=== PATIENT | male | born 1945 | race Caucasian/White ===

== ENCOUNTER 2018-03-22 20:25 | Inpatient (IN) | payer MEDICARE ==
--- NOTE | 2018-03-22 21:03 | ED ---
GI/ HPI - HPI Summary HPI Summary: This patient is a 72 year old male brought in by ambulance to [facility] with a chief complaint of melena since 2 weeks ago. Patient states he woke up this morning dizzy and weak. He went downstairs to the kitchen and attempted to splash water on his face to freshen up as he felt hot and sweaty. Instead, he spent several minutes trying not to pass out. Afterwards, he went to the bathroom and his stool was black and tarry. Patient was sent from [place] for further evaluation. The pain is rated 0/10 in severity. Symptoms aggravated by nothing. Symptoms alleviated by nothing. Patient additionally reports weakness, SOB, diaphoresis. Patient denies pain. Patient states he had a bleeding ulcer 10 years ago and the symptoms today are similar. - History of Current Complaint Stated Complaint: GI COMPLAINT Hx Obtained From: Patient Onset/Duration: Started Weeks Ago, Still Present Timing: Constant Pain Intensity: 0 Associated Signs and Symptoms: Positive: Negative - pain, Black Tarry Stool, Other: - weakness, SOB, diaphoresis Aggravating Factor(s): Nothing Alleviating Factor(s): Nothing - Allergy/Home Medications Allergies/Adverse Reactions: Allergies Allergy/AdvReac Type Severity Reaction Status Date / Time ibuprofen Allergy Unknown Verified 03/22/18 20:37 Reaction Details Home Medications: Home Medications Aspirin [Aspirin Childrens 81 MG] 81 mg PO DAILY 03/22/18 [History Confirmed ] Atorvastatin Calcium [Lipitor] 80 mg PO DAILY 03/22/18 [History Confirmed ] Dicyclomine HCl 10 mg PO TID 03/22/18 [History Confirmed 03/22/18] Famotidine [Pepcid] 20 mg PO BID 03/22/18 [History Confirmed 03/22/18] Levocetirizine Dihydrochloride [Xyzal Allergy 24Hr] 5 mg PO DAILY 03/22/18 [ History Confirmed 03/22/18] PMH/Surg Hx/FS Hx/Imm Hx Previously Healthy: No History: Reports: Other Problems/Disorders - bleeding ulcer Opthamlomology History: Denies: Hx Legally Blind EENT History: Denies: Hx Deafness Infectious Disease History: No Infectious Disease History: Denies: Traveled Outside the [place] in Last 30 Days - Family History Known Family History: Negative: Hypertension - Social History Occupation: Retired Alcohol Use: None Hx Substance Use: No Substance Use Type: Reports: None Review of Systems Positive: Skin Diaphoresis. Negative: Fever Positive: Shortness Of Breath Positive: Other - melena Positive: Weakness All Other Systems Reviewed And Are Negative: Yes Physical Exam - Summary Physical Exam Summary: VITAL SIGNS: Reviewed. GENERAL: Patient is a well-developed and nourished male who is lying comfortable in the stretcher. Patient is not in any acute respiratory distress. HEAD AND FACE: No signs of trauma. No ecchymosis, hematomas or skull depressions. No sinus tenderness. EYES: PERRLA, EOMI x 2, No injected conjunctiva, no nystagmus. EARS: Hearing grossly intact. Ear canals and tympanic membranes are within normal limits. MOUTH: Oropharynx within normal limits. NECK: Supple, trachea is midline, no adenopathy, no JVD, no carotid bruit, no c- spine tenderness, neck with full ROM. CHEST: Symmetric, no tenderness at palpation LUNGS: Clear to auscultation bilaterally. No wheezing or crackles. CVS: Regular rate and rhythm, S1 and S2 present, no murmurs or gallops appreciated. ABDOMEN: Soft, non-tender. No signs of distention. No rebound no guarding, and no masses palpated. Bowel sounds are normal. EXTREMITIES: FROM in all major joints, no edema, no cyanosis or clubbing. RECTAL (completed by attending at [place]): melena, tested occult blood positive NEURO: Alert and oriented x 3. No acute neurological deficits. Speech is normal and follows commands. SKIN: Dry and warm Triage Information Reviewed: Yes Vital Signs On Initial Exam: Initial Vitals Temp Pulse Resp BP Pulse Ox 97.6 F 63 20 120/65 97 03/22/18 20:31 18 20:31 18 20:31 18 20:31 03/22/18 20:31 Vital Signs Reviewed: Yes Diagnostics - Vital Signs Vital Signs Temp Pulse Resp BP Pulse Ox 03/22/18 20:31 97.6 F 63 20 120/65 97 - Laboratory Result Diagrams: 03/22/18 21:16 03/22/18 21:16 Lab Statement: Any lab studies that have been ordered have been reviewed, and results considered in the medical decision making process. - EKG 2156 Cardiac Rate: Bradycardia EKG Rhythm: Sinus Bradycardia - 59 BPM Summary of EKG Findings: An EKG, taken 2155, reveals Sinus Bradycardia (59 BPM) , Non-specific T-wave changes, low voltage. GIGU Course/Dx - Course Course Of Treatment: This patient is a 72 year old male brought in by ambulance to [facility] with a chief complaint of melena since 2 weeks ago. Patient states he woke up this morning dizzy and weak. An EKG, taken 2155, reveals NSR (59 BPM), Non-specific T-wave changes, low voltage. Bloodwork Obtained. In the ED course the patient was given Pantoprazole, NS 0.9% bolus IV. The pt is hemodynamically stable, alert and oriented x3. We paged Dr. Wynn (Hospitalist) at 2149 to discuss patient care and possible admission. We discussed patient care with Dr. Wynn (Hospitalist) at 2304 and they agreed to admit the patients. Patient will be admitted to the floor with a dx of upper GI bleed. The patient is agreeable with this plan. - Diagnoses Provider Diagnoses: Upper GI bleed - Physician Notifications Discussed Care Of Patient With: Renae Wynn - Hospitalist Time Discussed With Above Provider: 23:05 - We discussed patient care with Dr. Wynn (Hospitalist) at 230 and they agreed to admit the patient. Discharge - Sign-Out/Discharge Documenting (check all that apply): Patient Departure - Discharge Plan Condition: Stable Disposition: ADMITTED TO [facility] Referrals: No Primary Care Phys,NOPCP [Primary Care Provider] - - Attestation Statements Document Initiated by Janetibe: Yes Documenting Scribe: Eli Gloria Provider For Whom Ced is Documenting (Include Credential): Hortencia Hess MD [facility] Attestation: Eli Mckee scribed for Hortencia Hess MD on 03/22/18 at 2324. Status of Scribe Document: Ready
[2018-03-22] MEDS ORDERED: Pantoprazole* 80 mg IN NS 80 MG/250 ML BAG IVPB ONE (21:08)
[2018-03-22] MEDS ORDERED: Pantoprazole IV* 40 MG IV ONE (21:08)
[2018-03-22] MEDS ORDERED: NS 0.9% 1000 ML* 1,000 ML IV SCH ×2 (21:15→23:45)
[2018-03-22 21:26] LABS: ABS Basophils 0.1 10^3/ul (0-0.2); ABS Eosinophils 0.1 10^3/ul (0-0.6); ABS Lymphocytes 2.8 10^3/ul (1.0-4.8); ABS Neutrophils 7.8 10^3/ul (1.5-7.7); ABS Nucleated RBC 0 10^3/ul; Eosinophil % 1.1 %; Hematocrit 31 % (42-52); Hemoglobin 10.5 g/dl (14.0-18.0); Lymphocyte % 23.6 %; Mean Corpuscular HGB Conc 34 g/dl (31-36); Mean Corpuscular Hemoglobin 34 pg (27-31); Mean Corpuscular Volume 98 fL (80-94); Mean Platelet Volume 9.5 fL (7.4-10.4); Nucleated Red Blood Cells % 0.1; Platelet Count 165 10^3/ul (150-450); Red Blood Count 3.13 10^6/ul (4.00-5.40); Red Cell Distribution Width 13 % (10.5-15); White Blood Count 11.8 10^3/ul (3.5-10.8)
[2018-03-22 21:42] LABS: Activated Partial Thrombo Time 31.2 seconds (26.0-36.3); INR 1.21 (0.77-1.02)
[2018-03-22 21:45] LABS: Albumin/Globulin Ratio 2.1 (1-3); BUN/Creatinine Ratio 44.6 (8-20); Calcium 7.7 mg/dL (8.6-10.3); EGFR Non-African American 103.4 (>60); Globulin 1.4 g/dL (2-4); Total Bilirubin 0.7 mg/dL (0.2-1.0); Total Protein 4.4 g/dL (6.4-8.9)
[2018-03-22] MEDS ORDERED: Albuterol 2.5 MG/3 ML NEB.SOL* (0.083%) INH PRN (23:45)
[2018-03-22] MEDS ORDERED: Ondansetron INJ* 2 MG/ML VIAL IV PRN (23:45)
[2018-03-23] MEDS ORDERED: Albuterol 2.5 MG/3 ML NEB.SOL* (0.083%) INH PRN (00:17)
[2018-03-23 00:39] LABS: Hematocrit 29 % (42-52)
--- NOTE | 2018-03-23 00:39 | ADMNOTE ---
Subjective Date of Service: 03/22/18 Interval History: code status full this is admission h/p hpi this is a 72 yr old wm with hx of copd hx of ugib due to bleeding ulcer, cva/tia [id number] with blurry vision was transferred from [facility] to here due to lack of gi service. pt had one week duration of black stool. he had multiple episodes of black stool mixed with fresh blood yesterday 8 am and has been feeling unsteady/dizzy and subsequently fell ---> he has a hard time to get him self up then went to the bathroom again for antoher episode of bm ---> decided to go to [place] [facility]. initial hg was 10.5 here. he was started with protonix drip. 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5 Mg/Ipratropium 0.5 Mg)) 1 neb INH [id number] AWAKE LEONELA Sodium Chloride (Ns 0.9% 1000 Ml*) 1,000 mls @ 150 mls/hr IV PER RATE LEONELA Pantoprazole Sodium (Protonix Iv Bag*) 80 mg in 250 mls @ 25 mls/hr IVPB ED ONCE ONE Stop: 12/25/18 07:07 Last Admin: 03/22/18 22:46 Dose: 25 mls/hr Sodium Chloride (Ns 0.9% 1000 Ml*) 1,000 mls @ 125 mls/hr IV PER RATE LEONELA Pantoprazole Sodium (Protonix Iv Bag*) 80 mg in 250 mls @ 25 mls/hr IVPB Q10H LEONELA Ondansetron HCl (Zofran Inj*) 4 mg IV Q6H PRN PRN Reason: NAUSEA/VOMITING Vital Signs - 8 hr 03/22/18 03/22/18 03/22/18 20:31 21:06 21:09 Temperature 97.6 F Pulse Rate 63 63 58 Respiratory 20 17 17 Rate Blood Pressure 120/65 98/64 (mmHg) O2 Sat by Pulse 97 97 95 Oximetry 03/22/18 03/22/18 03/22/18 21:38 22:00 22:39 Temperature Pulse Rate 58 59 61 Respiratory 15 19 16 Rate Blood Pressure 100/62 96/56 (mmHg) O2 Sat by Pulse 95 95 94 Oximetry 03/22/18 03/22/18 03/22/18 23:00 23:09 23:39 Temperature Pulse Rate 61 59 57 Respiratory 17 15 15 Rate Blood Pressure 105/66 109/58 (mmHg) O2 Sat by Pulse 94 94 92 Oximetry 03/23/18 00:24 Temperature 0 F Pulse Rate 0 Respiratory 0 Rate Blood Pressure 0/0 (mmHg) O2 Sat by Pulse 0 Oximetry Oxygen Devices in Use Now: Nasal Cannula Appearance: nad Eyes: No Scleral Icterus, PERRLA Ears/Nose/Mouth/Throat: NL Teeth, Lips, Gums, Clear Oropharnyx, - - oral mucosa dry Neck: NL Appearance and Movements; NL JVP, Trachea Midline, No Thyroid Enlargement, Masses Respiratory: Symmetrical Chest Expansion and Respiratory Effort, - - scattered wheezing Cardiovascular: NL Sounds; No Murmurs; No JVD, RRR Abdominal: NL Sounds; No Tenderness; No Distention Extremities: No Edema, - - able to raise ue and le b/l against gravity Skin: No Rash or Ulcers Neurological: Alert and Oriented x 3, NL Sensation, NL Muscle Strength and Tone Result Diagrams: 03/24/18 12:22 03/24/18 04:47 EKG Data: sb no acute st t change when compared to 2010 ekg Assess/Plan/Problems-Billing Assessment: this is a 72 yr old wm with copd bleeding gastric ulcer but had to take asa 81 mg due to cva/tia attack presented to er with melena for one week but became weak/unsteady gait/fall pt was transferred to here from [place] due to lack of gi service - Patient Problems (1) UGIB (upper gastrointestinal bleed) Current Visit: Yes Status: Acute Code(s): K92.2 - GASTROINTESTINAL HEMORRHAGE, UNSPECIFIED SNOMED Code(s): 29457110 Comment: - Hx of ulcer and ASA use, may have had additional medication added by his primary at some point, was on Pepcid but not PPI - H&H dropped overnight to 7.4 and 22, transfuse 2 units PRBCs stat, hold on stress test, will obtain ECHO - GI consult appreciated, needs ECHO before we can sedate for EGD - Requested RN to pre-med with tylenol and benadryl for transfusion - Continue protonix drip (2) COPD (chronic obstructive pulmonary disease) Current Visit: Yes Status: Acute Code(s): J44.9 - CHRONIC OBSTRUCTIVE PULMONARY DISEASE, UNSPECIFIED SNOMED Code(s): 08755266 Comment: - PRN duoneb, not in exacerbation (3) Demand ischemia Current Visit: Yes Status: Acute Code(s): I24.8 - OTHER FORMS OF ACUTE ISCHEMIC HEART DISEASE SNOMED Code(s): 668326880 Comment: - Elevated trop on admission now trending down, unclear if demand versus ACS - Patient has SOB and reports chest pain before admission, concern that with CO exposure patient may have (4) Anemia Current Visit: Yes Status: Acute Code(s): D64.9 - ANEMIA, UNSPECIFIED SNOMED Code(s): 349646081 Comment: - In setting of GI bleeding and CO exposure - Check carbon monoxide which is <4.0, unclear if patient having continued exposure to CO in the home. - Continue O2 at @LNC - Pending 2 units PRBCs (5) Dizzy Current Visit: Yes Status: Acute Code(s): R42 - DIZZINESS AND GIDDINESS SNOMED Code(s): 842851434 Comment: ck his orthostatic in am gentle ivf while npo (6) Generalized weakness Current Visit: Yes Status: Acute Code(s): R53.1 - WEAKNESS SNOMED Code(s) : 60966966 Comment: - Likely in response to dropping H&H, however there is mild increase in troponin - No chest pain, but does get SOB - Pending ECHO and transfusion this AM
[2018-03-23] MEDS: Albuterol/Ipratropium NEB.SOL* Albuterol 2.5 MG/Ipratropium 0.5 MG 3 ML INH SCH ×4 (01:24→10:51)
[2018-03-23 03:30] LABS: Hematocrit 29 % (42-52); Hemoglobin 10.1 g/dl (14.0-18.0)
[2018-03-23] MEDS: Pantoprazole* 80 mg IN NS 80 MG/250 ML BAG IVPB SCH ×3 (04:07→23:20)
[2018-03-23] MEDS: NS 0.9% 1000 ML* 1,000 ML IV SCH ×2 (04:30→09:34)
[2018-03-23 06:17] LABS: Hematocrit 28 % (42-52); Hemoglobin 9.6 g/dl (14.0-18.0)
[2018-03-23 06:26] LABS: INR 1.22 (0.77-1.02)
[2018-03-23 06:38] LABS: ALT 17 U/L (7-52); AST 13 U/L (13-39); Albumin 2.8 g/dL (3.2-5.2); Alkaline Phosphatase 34 U/L (34-104); Anion Gap 4 mmol/L (2-11); BUN/Creatinine Ratio 39.2 (8-20); Blood Urea Nitrogen 31 mg/dL (6-24); CO2 Carbon Dioxide 24 mmol/L (22-32); Calcium 7.8 mg/dL (8.6-10.3); Chloride 110 mmol/L (101-111); Cholesterol 84 mg/dL; EGFR Non-African American 95.9 (>60); Globulin 1.4 g/dL (2-4); Glucose 90 mg/dL (70-100); LDL Cholesterol 27 mg/dL; Potassium 3.9 mmol/L (3.5-5.0); Sodium 138 mmol/L (135-145); Total Protein 4.2 g/dL (6.4-8.9); Triglycerides 140 mg/dL
[2018-03-23 06:50] LABS: Iron 118 ug/dL (50-212); Total Iron Binding Capacity 211 mcg/dL (250-450); Transferrin 151 mg/dL (203-362)
[2018-03-23 07:05] LABS: TSH (Thyroid Stimulating Horm) 2.61 mcIU/mL (0.34-5.60)
[2018-03-23 10:34] LABS: Hematocrit 28 % (42-52); Hemoglobin 9.6 g/dl (14.0-18.0)
--- NOTE | 2018-03-23 11:25 | PN ---
Subjective Date of Service: 03/23/18 Interval History: Patient seen and examined. States his only complaint is fatigue and has mild dyspnea with exertion/ambulation. Denies any further bloody or dark stools. Denies abdominal pain, no N/V, deneis recent use of NSAIDS or steroids but admits his doctor put him on a medication for his arthritis to take TID, but does not know what it is. Objective Active Medications: Albuterol (Ventolin 2.5 Mg/3 Ml Neb.Barbara*) 2.5 mg INH Q2H PRN PRN Reason: sob/wheezing Sodium Chloride (Ns 0.9% 1000 Ml*) 1,000 mls @ 150 mls/hr IV PER RATE LEONELA Pantoprazole Sodium (Protonix Iv Bag*) 80 mg in 250 mls @ 25 mls/hr IVPB Q10H LEONELA Last Admin: 03/23/18 09:34 Dose: 25 mls/hr Sodium Chloride (Ns 0.9% 1000 Ml*) 1,000 mls @ 100 mls/hr IV PER RATE [facility] Last Admin: 03/23/18 09:34 Dose: 100 mls/hr Ondansetron HCl (Zofran Inj*) 4 mg IV Q6H PRN PRN Reason: NAUSEA/VOMITING Vital Signs - 8 hr 03/23/18 03/23/18 03/23/18 07:25 09:43 10:54 Temperature 98.0 F Pulse Rate 52 52 Respiratory 18 18 16 Rate Blood Pressure 108/53 (mmHg) O2 Sat by Pulse 94 93 Oximetry Oxygen Devices in Use Now: None Appearance: Akert, NAD, pale Eyes: No Scleral Icterus, PERRLA Ears/Nose/Mouth/Throat: NL Teeth, Lips, Gums, Mucous Membranes Moist Neck: NL Appearance and Movements; NL JVP, Trachea Midline Respiratory: Symmetrical Chest Expansion and Respiratory Effort, Clear to Auscultation Cardiovascular: RRR Abdominal: NL Sounds; No Tenderness; No Distention, No Hepatosplenomegaly Extremities: No Edema, No Clubbing, Cyanosis Skin: No Rash or Ulcers Neurological: Alert and Oriented x 3, - - poor historian but appropriate Nutrition: - - NPO Result Diagrams: 03/23/18 10:17 03/23/18 05:57 EKG Data: sb no acute st t change when compared to 2010 ekg Assess/Plan/Problems-Billing Assessment: This is a 72 yr old wm with copd and history of bleeding gastric ulcer , but continued to take ASA 81 mg due to hx of cva/tia. Presented to ER with at [place] with melena for one week but became weak/unsteady gait/fall, subsequently transferred from [place] due to lack of GI services. - Patient Problems (1) UGIB (upper gastrointestinal bleed) Code(s): K92.2 - GASTROINTESTINAL HEMORRHAGE, UNSPECIFIED SNOMED Code(s): 34157792 Comment: - Hx of ulcer and ASA use, may have had additional medication added by his primary at some point, was on Pepcid but not PPI - Currently on protonix drip - HgB down to 9.6 but is symptomatic, recheck at 6pm - Pending GI eval, will keep NPO after midnight in case of EGD in AM - See if patient can tolerate clears today (2) Generalized weakness Code(s): R53.1 - WEAKNESS SNOMED Code(s): 49077651 Comment: - Likely in response to dropping H&H, however there is mild increase in troponin - No chest pain, but does get SOB - Will order routine ECHO in AM and continue to follow labs - May need to transfuse if H&H continues to drop and he remains symptomatic (3) Anemia Code(s): D64.9 - ANEMIA, UNSPECIFIED SNOMED Code(s): 358400349 Comment: - In setting o GI bleeding - Unclear of his baseline HgB, may actually be higher due to his smoking hx which would account for being symptomatic now - Follow Iron studies and H&H, currently no further bloody stools today - Transfuse if needed, patient agreeable (4) COPD (chronic obstructive pulmonary disease) Code(s): J44.9 - CHRONIC OBSTRUCTIVE PULMONARY DISEASE, UNSPECIFIED SNOMED Code(s): 95787544 Comment: - PRN duoneb, not in exacerbation (5) Demand ischemia Code(s): I24.8 - OTHER FORMS OF ACUTE ISCHEMIC HEART DISEASE SNOMED Code(s): 335436737 Comment: - Elevated trop with no chest pain - Likely demand in setting of bleeding/anemia - Follow 3rd trop, trending down Status and Disposition: Inpatient, dispo TBD.
[2018-03-23 11:48] LABS: Urine Appearance Clear; Urine Bilirubin Negative (Negative); Urine Blood Negative (Negative); Urine Color Yellow; Urine Glucose Negative (Negative); Urine Ketones Negative (Negative); Urine Nitrite Negative (Negative); Urine Protein Negative (Negative); Urine Specific Gravity 1.018 (1.010-1.030); Urine Urobilinogen Negative (Negative)
--- NOTE | 2018-03-23 17:32 | CONS ---
CONSULTATION REPORT: DATE OF CONSULT: 03/23/18 REQUESTING PHYSICIAN: Dr. Renae Wynn. REASON FOR CONSULT: Acute blood loss anemia, melena. HISTORY OF PRESENT ILLNESS: This is a pleasant 72-year-old male with a past medical history of TIA, COPD, hypertension and distant peptic ulcer disease, who initially presented to [facility] 4 to 5 days ago after evaluation for potential carbon monoxide poisoning. He states that his wood stove became clogged and he was becoming discoherent and confused in the house. He called for help and when the fire department came, he states that the carbon monoxide detectors began going off and everyone was evacuated from the home. During the hospitalization at [place], he reported that he was having dark stool for the last 2 weeks, black and tarry in nature. He denies any abdominal pain. He states that he does take a daily baby aspirin. No further NSAID usage. He states that he did have a peptic ulcer about 10 years ago that did have to have endoscopic therapy to it. He does not recall this was stomach or duodenal in nature. He states he has had longstanding acid reflux. He takes Pepcid up to twice a day at times for this. He denies any heavy alcohol use. He states that he did have episodes where he felt unsteady and with near blacking out while in [facility] and also prior to this. He states that he has also had some intermittent chest discomfort. He is unsure if it is exertional in nature and states that he has had worsening shortness of breath over the last few weeks as well. He denies any weight loss or weight gain. Denies any dysphagia or odynophagia. Denies any frequent diarrhea or constipation. Denies any nausea or emesis. The remainder of the 14-point review of systems is grossly negative. PAST MEDICAL HISTORY: COPD, hypertension, CVA, distant history of peptic ulcer disease, and osteoarthritis. PAST SURGICAL HISTORY: Left knee, tonsillectomy, appendectomy, ventral hernia repair, inguinal hernia repair, possible EGD for peptic ulcer disease. HOME MEDICATIONS: Include: 1. Atorvastatin. 2. Dicyclomine. 3. Famotidine. 4. Xyzal. ALLERGIES: Include IBUPROFEN. FAMILY HISTORY: No family history of colorectal cancer, inflammatory bowel disease, or GI cancer. SOCIAL HISTORY: Prior tobacco use. Denies EtOH. REVIEW OF SYSTEMS: The remainder of the 14-point review of systems was grossly negative. PHYSICAL EXAM: Vital Signs: Blood pressure 133/59, pulse is 58, respiratory rate is 22, he is 96% on room air, temperature was 98.0. General: Alert and oriented x3, in no acute distress. HEENT: Atraumatic, normocephalic. Pupils are equal, round, reactive to light. Conjunctivae are pink. Sclerae are anicteric. Cardiovascular: Regular rate and rhythm. S1, S2. Respiratory: Diminished at the base with occasional wheeze. Abdomen: Soft, nontender, and nondistended. Bowel sounds positive. Extremities: No clubbing, no cyanosis, no edema. Psych: Appropriate mood and affect. Skin with scattered ecchymoses. LABORATORY DATA: WBC count is 11.8; hemoglobin on admission 10.5, hemoglobin today 9.6; platelet count 165. INR 1.22. Creatinine 0.79, calcium 7.8. Iron 118, TIBC 211, percent saturation 56. Total bilirubin 0.70, AST is 13, ALT is 17. Troponins 0.11, 0.07, 0.04. Albumin 2.8. TSH 2.61. ASSESSMENT AND PLAN: This is a 72-year-old male with acute blood loss anemia with reported melena. 1. Acute blood loss anemia. Agree with IV proton pump inhibitor. H and H q.6 hours. Keep head of the bed elevated at all times. Keep 2 units of PRBCs on hold. Transfuse p.r.n. for hemoglobin below 7 per primary service. Avoid NSAIDs. INR is slightly elevated with slightly low platelet count. If ongoing evidence or concern of blood loss, we would add on octreotide, but no clear evidence of liver disease. He certainly does need an upper endoscopy to evaluate for peptic ulcer disease. Given his elevated troponin and recent carbon monoxide exposure along with tobacco abuse and history and new-onset dyspnea and chest pains, we would recommend clearance from primary team or cardiology team prior to endoscopic evaluation. In the interim, continue to monitor hemoglobin and transfuse as needed. 2. Elevated troponin. Per primary team. 3. Dyspnea. Per primary team. 4. Elevated INR. Unclear etiology. Will need outpatient followup. [id number]/[facility] #: [id number] [facility]ITALTyson
[2018-03-23 18:06] LABS: Hematocrit 24 % (42-52); Hemoglobin 8.3 g/dl (14.0-18.0)
[2018-03-24 04:56] LABS: Hematocrit 22 % (42-52); Hemoglobin 7.4 g/dl (14.0-18.0); Mean Corpuscular HGB Conc 33 g/dl (31-36); Mean Corpuscular Hemoglobin 33 pg (27-31); Mean Corpuscular Volume 99 fL (80-94); Mean Platelet Volume 9.6 fL (7.4-10.4); Platelet Count 156 10^3/ul (150-450); Red Blood Count 2.25 10^6/ul (4.00-5.40); Red Cell Distribution Width 13 % (10.5-15); White Blood Count 14.3 10^3/ul (3.5-10.8)
[2018-03-24 05:17] LABS: Calcium 7.8 mg/dL (8.6-10.3); EGFR Non-African American 94.5 (>60); Magnesium 1.8 mg/dL (1.9-2.7); Potassium 4.2 mmol/L (3.5-5.0)
[2018-03-24] MEDS ORDERED: Magnesium Sulfate 2 GM IV* 2 GM/50 ML BAG IVPB ONE (07:45)
[2018-03-24] MEDS ORDERED: diPHENhydraMINE PO* 25 MG PO ONE (08:48)
[2018-03-24] MEDS ORDERED: Acetaminophen TAB* 325 MG PO ONE (08:49)
[2018-03-24] MEDS: Pantoprazole* 80 mg IN NS 80 MG/250 ML BAG IVPB SCH ×3 (10:12→21:26)
[2018-03-24 12:35] LABS: Hematocrit 18 % (42-52); Hemoglobin 6.3 g/dl (14.0-18.0)
[2018-03-24] MEDS: NS 0.9% 1000 ML* 1,000 ML IV SCH ×2 (12:51→22:33)
--- NOTE | 2018-03-24 14:24 | PN ---
Subjective Date of Service: 03/24/18 Interval History: Patient seen and examined this morning. Patient lethargic and pale. Per notes, patient had large bloody BM overnight x2. Patient complains of extreme fatigue and SOB with minimal exertion. Denies chest pain, no n/v/d, no abdominal pain. Objective Active Medications: Albuterol (Ventolin 2.5 Mg/3 Ml Neb.Barbara*) 2.5 mg INH Q2H PRN PRN Reason: sob/wheezing Sodium Chloride (Ns 0.9% 1000 Ml*) 1,000 mls @ 150 mls/hr IV PER RATE LEONELA Pantoprazole Sodium (Protonix Iv Bag*) 80 mg in 250 mls @ 25 mls/hr IVPB Q10H LEONELA Last Admin: 03/24/18 10:12 Dose: 25 mls/hr Sodium Chloride (Ns 0.9% 1000 Ml*) 1,000 mls @ 100 mls/hr IV PER RATE LEONELA Last Admin: 03/24/18 12:51 Dose: 100 mls/hr Ondansetron HCl (Zofran Inj*) 4 mg IV Q6H PRN PRN Reason: NAUSEA/VOMITING Vital Signs - 8 hr 03/24/18 03/24/18 03/24/18 07:58 08:00 09:42 Temperature 96.9 F Pulse Rate 75 Respiratory 14 16 16 Rate Blood Pressure 125/53 (mmHg) O2 Sat by Pulse 100 Oximetry 03/24/18 03/24/18 03/24/18 12:26 13:07 13:11 Temperature 98.5 F Pulse Rate 66 Respiratory 16 24 17 Rate Blood Pressure 137/70 (mmHg) O2 Sat by Pulse 100 Oximetry 03/24/18 03/24/18 03/24/18 13:30 13:46 14:00 Temperature Pulse Rate 67 64 Respiratory 19 22 17 Rate Blood Pressure 124/70 109/67 (mmHg) O2 Sat by Pulse 99 100 Oximetry Oxygen Devices in Use Now: Nasal Cannula Appearance: ill-appearing, NAD Eyes: No Scleral Icterus, PERRLA Ears/Nose/Mouth/Throat: NL Teeth, Lips, Gums, - - dry oral mucosa Neck: NL Appearance and Movements; NL JVP, Trachea Midline Respiratory: Symmetrical Chest Expansion and Respiratory Effort, Clear to Auscultation Cardiovascular: NL Sounds; No Murmurs; No JVD, RRR, No Edema Abdominal: NL Sounds; No Tenderness; No Distention, No Hepatosplenomegaly Extremities: No Edema, No Clubbing, Cyanosis Skin: No Rash or Ulcers - fatigued, oriented x3 Nutrition: - - NPO Result Diagrams: 03/24/18 12:22 03/24/18 04:47 EKG Data: sb no acute st t change when compared to 2010 ekg Assess/Plan/Problems-Billing Assessment: This is a 72 yr old wm with copd and history of bleeding gastric ulcer , but continued to take ASA 81 mg due to hx of cva/tia. Presented to ER with at [place] with melena for one week but became weak/unsteady gait/fall, subsequently transferred from [place] due to lack of GI services. - Patient Problems (1) UGIB (upper gastrointestinal bleed) Code(s): K92.2 - GASTROINTESTINAL HEMORRHAGE, UNSPECIFIED SNOMED Code(s): 39643638 Comment: - Hx of ulcer and ASA use, may have had additional medication added by his primary at some point, was on Pepcid but not PPI - H&H dropped overnight to 7.4 and 22, transfuse 2 units PRBCs stat, hold on stress test, will obtain ECHO - GI consult appreciated, needs ECHO before we can sedate for EGD - Requested RN to pre-med with tylenol and benadryl for transfusion - Continue protonix drip (2) Generalized weakness Code(s): R53.1 - WEAKNESS SNOMED Code(s): 65770615 Comment: - Likely in response to dropping H&H, however there is mild increase in troponin - No chest pain, but does get SOB - Pending ECHO and transfusion this AM (3) Anemia Code(s): D64.9 - ANEMIA, UNSPECIFIED SNOMED Code(s): 076583790 Comment: - In setting of GI bleeding and CO exposure - Check carbon monoxide which is <4.0, unclear if patient having continued exposure to CO in the home. - Continue O2 at @LNC - Pending 2 units PRBCs (4) COPD (chronic obstructive pulmonary disease) Code(s): J44.9 - CHRONIC OBSTRUCTIVE PULMONARY DISEASE, UNSPECIFIED SNOMED Code(s): 04242472 Comment: - PRN duoneb, not in exacerbation (5) Demand ischemia Code(s): I24.8 - OTHER FORMS OF ACUTE ISCHEMIC HEART DISEASE SNOMED Code(s): 778436841 Comment: - Elevated trop on admission now trending down, unclear if demand versus ACS - Patient has SOB and reports chest pain before admission, concern that with CO exposure patient may have (6) DVT prophylaxis Code(s): XWJ8410 - SNOMED Code(s): 107278526 Comment: - Active bleeding, SCDs only (7) Full code status Code(s): Z78.9 - OTHER SPECIFIED HEALTH STATUS SNOMED Code(s): 724233217 Status and Disposition: Inpatient, dispo TBD.
[2018-03-24] MEDS ORDERED: Perflutren Lipid Microsphere* 3 ML VIAL ONE (14:45)
--- NOTE | 2018-03-24 16:30 | ECHO ---
Patient: EDIE FOUNTAIN [facility] Rec#: [id number] : 1945 Date: 03/24/2018 Age: 72y Height: 163 cm / 64.2 in Weight: 90.2 kg / 198.8 lbs Sex: M BSA: 1.96 Room#: [facility] Admit Date#: 03/23/2018 Type: Inpatient Referring: Sharda Paula Reading: Yair Deleon MD Nightclub Manager: [facility]NEW [facility] Tran[facility] Echocardiogram Indication: Shortness of breath BP: 121/72 HR: 61 Rhythm: NSR Findings History: HTN, COPD, CVA, upper GI bleed, former pipe smoker, recent CO poisoning. Technical Comments: The study is technically limited due to poor acoustic windows. Completed at 1530. Left Ventricle: The left ventricular chamber size is normal. There is no left ventricular hypertrophy. There is normal left ventricular systolic function. The estimated ejection fraction is 60-65%. There is septal flattening of the interventricular septum consistent with right ventricular volume or pressure overload. Abnormal left ventricular diastolic function is observed. Abnormal left ventricular diastolic filling is observed, consistent with impaired relaxation. Left Atrium: The left atrium is moderately dilated. Right Ventricle: The right ventricle is mildly dilated. The right ventricular global systolic function is low normal. Right Atrium: The right atrium is moderately dilated. There is evidence of an atrial septal aneurysm. Aortic Valve: The aortic valve is trileaflet. The aortic valve leaflets are mildly thickened. There is a trace of aortic regurgitation. There is no evidence of aortic stenosis. Mitral Valve: The mitral valve leaflets are mildly thickened. There is a trace of mitral regurgitation. There is no evidence of mitral stenosis. Tricuspid Valve: The tricuspid valve leaflets are normal. There is mild tricuspid regurgitation. The right ventricular systolic pressure is estimated at 30 mmHg. There is evidence that pulmonary hypertension may be underestimated. There is no tricuspid stenosis. Pulmonic Valve: The pulmonic valve structure is not well visualized. There is a trace pulmonic regurgitation. There is no pulmonic stenosis. Pericardium: There is no significant pericardial effusion. A pericardial fat pad is visualized. Aorta: There is mild dilatation of the ascending aorta. The aortic arch is not well visualized. The aortic root is normal in size. Pulmonary Artery: The main pulmonary artery is not well visualized. Venous: The inferior vena cava appears normal in size. There is a greater than 50% respiratory change in the inferior vena cava dimension. Contrast: Definity was used to optimize study. 2.5 mL of diluted Definity were utilized. Intravenous contrast was used to enhance endocardial border definition. Conclusions There is normal left ventricular systolic function. The estimated ejection fraction is 60-65%. There is septal flattening of the interventricular septum consistent with right ventricular volume or pressure overload. Abnormal left ventricular diastolic filling is observed, consistent with impaired relaxation. The left atrium is moderately dilated. The right ventricle is mildly dilated. The right ventricular global systolic function is low normal. The right atrium is moderately dilated. The aortic valve leaflets are mildly thickened. There is mild tricuspid regurgitation. There is mild dilatation of the ascending aorta. There is evidence of an atrial septal aneurysm. Similar to the GIRISH of 2011 except that a PFO was demonstrated on the GIRISH bubble study and atherosclerotic plaque was seenin the aorta. The RV dilatation and septal flattening were not reported in 2011. Measurements Name Value Normal Range RVIDd (AP) 2D 3.7 cm (0.9 - 2.6) RVDdMajor (2D) 4.5 cm (2.2 - 4.4) RAd ISD 4CH 5.7 cm (3.4 - 4.9) RA (A4C)W 4 cm (2.9 - 4.6) IVSd (2D) 1 cm (0.6 - 1) LVPWd (2D) 0.9 cm (0.6 - 1) LVIDd (2D) 4.9 cm (3.6 - 5.4) LVIDs (2D) 3.6 cm - LV FS (2D) 27 % (25 - 45) Aortic Annulus 2.2 cm (1.4 - 2.6) Ao root diameter (2D) 3.4 cm (2.1 - 3.5) Ascending Ao 3.5 cm (2.1 - 3.4) LA dimension (AP) 2D 4.2 cm (2.3 - 3.8) LAd ISD 4CH 5.3 cm (2.9 - 5.3) LA ISD 4CH W 4.9 cm (2.5 - 4.5) Name Value Normal Range LA ESV BP (A/L) index 47 ml/m2 - Name Value Normal Range MV E-wave Vmax 0.6 m/sec - MV deceleration time 173 msec - MV A-wave Vmax 0.9 m/sec - MV E:A ratio 0.6 ratio - LV septal e' Vmax 0.08 m/sec - LV lateral e' Vmax 0.12 m/sec - LV E:e' septal ratio 7.55 ratio - Name Value Normal Range AV Vmax 1.5 m/sec - AV VTI 30 cm - AV peak gradient 9 mmHg - AV mean gradient 5 mmHg - LVOT Vmax 1.2 m/sec - LVOT VTI 24 cm - LVOT peak gradient 6 mmHg - LVOT mean gradient 3 mmHg - Name Value Normal Range TR Vmax 2.6 m/sec - TR peak gradient 27 mmHg - RAP 3 mmHg - RVSP 30 mmHg - IVC diameter 2.06 cm - Name Value Normal Range PV Vmax 0.9 m/sec - PV peak gradient 3 mmHg -
--- NOTE | 2018-03-24 21:10 | CONS ---
GASTROENTEROLOGY CONSULT FOLLOW-UP NOTE: Chart reviewed and spoke with primary team on several occasions. Met with patient this morning and afternoon. GI following for suspected GI bleed and anemia. Hospitalization also notable for carbon monoxide poisoning, now resolved, and elevated troponin with unclear cardiac status. The patient was noted to have a hematocrit that dropped today to 22. He had dark red bloody bowel movements early this morning between 5 and 6 a.m. The plan was to transfuse 2 units; however, this was delayed several hours. At the time of recheck prior to receiving the 2 units, his hematocrit had dropped further to 18. Patient was pale and lethargic at that time. 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 He has remained hemodynamically stable. Cardiology unable to perform risk stratification with stress today due to anemia. Echo to be performed this afternoon. Patient seen again while receiving first unit of blood. He appeared more alert and comfortable. At this point, the patient is clinically stable. His vital signs are normal, and there he has had no ongoing overt bleeding for at least 10 hours. I would favor volume resuscitation with packed red blood cells for goal hemoglobin of 8 given concern for underlying cardiac disease as evidenced by elevated troponin on admission. Cardiology will then likely be able to perform risk stratification with stress test tomorrow morning after which we hopefully will be able to proceed with upper endoscopy. We could certainly consider doing a more urgent upper endoscopy if the patient has ongoing bleeding or clinical change. However, I think it is appropriate to optimize him prior to proceeding with moderate sedation and the procedure if possible. I agree with transfusion of 2 units of blood and closely monitoring hemoglobin. Please contact GI if ongoing evidence of active bleeding; otherwise, we would like to tentatively plan for EGD tomorrow after cardiac evaluation. GI will continue to follow. Yael Reynoso MD Gastroenterology [id number]/[facility] #: [id number] [facility]LANDTyson
[2018-03-24 21:31] LABS: Hematocrit 23 % (42-52)
[2018-03-25 06:11] LABS: ABS Basophils 0 10^3/ul (0-0.2); ABS Eosinophils 0.2 10^3/ul (0-0.6); ABS Lymphocytes 1.5 10^3/ul (1.0-4.8); ABS Monocytes 0.7 10^3/ul (0-0.8); ABS Neutrophils 7.1 10^3/ul (1.5-7.7); ABS Nucleated RBC 0 10^3/ul; Eosinophil % 2.4 %; Hematocrit 22 % (42-52); Hemoglobin 7.6 g/dl (14.0-18.0); Lymphocyte % 16.1 %; Mean Corpuscular HGB Conc 35 g/dl (31-36); Mean Corpuscular Hemoglobin 34 pg (27-31); Mean Corpuscular Volume 95 fL (80-94); Nucleated Red Blood Cells % 0.2; Platelet Count 126 10^3/ul (150-450); Red Blood Count 2.28 10^6/ul (4.00-5.40); Red Cell Distribution Width 15 % (10.5-15); White Blood Count 9.6 10^3/ul (3.5-10.8)
[2018-03-25 06:26] LABS: Albumin 2.6 g/dL (3.2-5.2); Albumin/Globulin Ratio 2.2 (1-3); BUN/Creatinine Ratio 37.5 (8-20); Calcium 7.3 mg/dL (8.6-10.3); EGFR Non-African American 106.7 (>60); Globulin 1.2 g/dL (2-4); Magnesium 2.2 mg/dL (1.9-2.7); Potassium 3.9 mmol/L (3.5-5.0); Total Bilirubin 0.9 mg/dL (0.2-1.0); Total Protein 3.8 g/dL (6.4-8.9)
[2018-03-25] MEDS: Pantoprazole* 80 mg IN NS 80 MG/250 ML BAG IVPB SCH ×4 (07:27→21:31)
[2018-03-25] MEDS ORDERED: Iohexol 350* (CONTRAST) 500 ML MDV IV ONE (08:54)
[2018-03-25] MEDS: NS 0.9% 1000 ML* 1,000 ML IV SCH ×2 (10:37→21:36)
--- NOTE | 2018-03-25 12:04 | PN ---
Subjective Date of Service: 03/25/18 Interval History: Patient seen and examined in ICU, appears comfortable, sister at bedside. States he is overall feeling better, denies SOB, no chest pain, no fevers or chills. PRBCs infusing (unit 3) and tolerating well. Objective Active Medications: Albuterol (Ventolin 2.5 Mg/3 Ml Neb.Barbara*) 2.5 mg INH Q2H PRN PRN Reason: sob/wheezing Last Admin: 03/25/18 11:52 Dose: 2.5 mg Sodium Chloride (Ns 0.9% 1000 Ml*) 1,000 mls @ 150 mls/hr IV PER RATE LEONELA Pantoprazole Sodium (Protonix Iv Bag*) 80 mg in 250 mls @ 25 mls/hr IVPB Q10H LEONELA Last Admin: 03/25/18 08:40 Dose: 25 mls/hr Sodium Chloride (Ns 0.9% 1000 Ml*) 1,000 mls @ 100 mls/hr IV PER RATE LEONELA Last Admin: 03/25/18 10:37 Dose: 100 mls/hr Ondansetron HCl (Zofran Inj*) 4 mg IV Q6H PRN PRN Reason: NAUSEA/VOMITING Vital Signs - 8 hr 03/25/18 03/25/18 03/25/18 04:00 04:01 04:08 Temperature 98.1 F Pulse Rate 50 51 Respiratory 14 13 Rate Blood Pressure 96/57 (mmHg) O2 Sat by Pulse 99 99 Oximetry 03/25/18 03/25/18 03/25/18 05:00 05:01 06:00 Temperature Pulse Rate 49 50 53 Respiratory 13 14 16 Rate Blood Pressure 101/56 113/63 (mmHg) O2 Sat by Pulse 100 100 100 Oximetry 03/25/18 03/25/18 03/25/18 06:01 07:00 07:01 Temperature Pulse Rate 61 51 50 Respiratory 13 18 13 Rate Blood Pressure 110/62 (mmHg) O2 Sat by Pulse 100 99 98 Oximetry 03/25/18 03/25/18 03/25/18 07:35 08:00 08:01 Temperature 98 F Pulse Rate 54 53 Respiratory 17 16 Rate Blood Pressure 114/55 (mmHg) O2 Sat by Pulse 100 100 Oximetry 03/25/18 03/25/18 03/25/18 08:32 08:35 09:00 Temperature Pulse Rate 60 68 53 Respiratory 19 16 Rate Blood Pressure 101/53 101/53 (mmHg) O2 Sat by Pulse 100 100 Oximetry 03/25/18 03/25/18 03/25/18 09:13 09:50 10:00 Temperature Pulse Rate 53 60 54 Respiratory 17 16 13 Rate Blood Pressure 133/66 106/61 119/61 (mmHg) O2 Sat by Pulse 100 100 100 Oximetry 03/25/18 03/25/18 03/25/18 10:01 10:06 10:22 Temperature Pulse Rate 55 54 52 Respiratory 16 14 19 Rate Blood Pressure 131/62 122/72 (mmHg) O2 Sat by Pulse 100 100 100 Oximetry 03/25/18 03/25/18 11:00 11:30 Temperature 97.9 F Pulse Rate 53 Respiratory 17 Rate Blood Pressure 121/77 (mmHg) O2 Sat by Pulse 100 Oximetry Oxygen Devices in Use Now: Nasal Cannula Appearance: alert, well appearing, NAD Eyes: No Scleral Icterus, PERRLA Ears/Nose/Mouth/Throat: NL Teeth, Lips, Gums, Clear Oropharnyx, Mucous Membranes Moist Neck: NL Appearance and Movements; NL JVP, Trachea Midline Respiratory: Symmetrical Chest Expansion and Respiratory Effort, - - mild exp wheeze right Cardiovascular: NL Sounds; No Murmurs; No JVD, RRR, No Edema Abdominal: NL Sounds; No Tenderness; No Distention Extremities: No Edema, No Clubbing, Cyanosis Skin: No Rash or Ulcers Neurological: Alert and Oriented x 3, NL Sensation Nutrition: - - NPO Result Diagrams: 03/25/18 05:55 03/25/18 05:55 Microbiology and Other Data: Microbiology 03/24/18 13:22 Nasal Screen MRSA (PCR) - Final Nasal Mrsa Not Detected Diagnostic Imaging: Patient Name: EDIE FOUNTAIN Medical Record#: [id number] Ordering Physician: Sharda Cole NP Acct.#: [id number] : 1945 Age: 72 Sex: M Location: [facility] Exam Date: 03/25/18843 ADM Status: ADM IN Order Information: CTA CHEST Accession Number: [id number] CPT: 34334 HISTORY: r/o PE COMPARISONS: CT of the abdomen and pelvis dated March 07, 2018 TECHNIQUE: Multiple contiguous axial CT scans of the chest were obtained after the administration of nonionic intravenous contrast, timed to the pulmonary arterial phase of contrast enhancement.. Coronal and sagittal multiplanar reformations are also submitted for review. FINDINGS: NECK AND THYROID: The lower neck and thyroid are unremarkable. CHEST WALL: There is no lower cervical, axillary, or supraclavicular lymphadenopathy by size criteria. HEART AND PERICARDIUM: Coronary calcifications are noted. AORTA AND PULMONARY VASCULATURE: There is no pulmonary arterial filling defect to suggest pulmonary embolism. There is no linear filling defect within the aorta to suggest aortic dissection. MEDIASTINUM: There is no mediastinal lymphadenopathy by size criteria. RUFINA: There is no hilar lymphadenopathy by size criteria. AIRWAY AND ESOPHAGUS: The airway is unremarkable, without endobronchial filling defect. The esophagus is grossly normal. LUNG PARENCHYMA: The lungs are clear. PLEURA: No pleural abnormalities are noted. UPPER ABDOMEN: There is a 0.4 cm nonobstructing calculus of the midpole of the right kidney. There is atherosclerosis of the abdominal aorta. BONES AND SOFT TISSUES: Degenerative changes are noted OTHER: None. IMPRESSION: NO PULMONARY ARTERIAL FILLING DEFECT TO SUGGEST PULMONARY EMBOLISM. RIGHT NEPHROLITHIASIS CARDIAC ECHO: Conclusions There is normal left ventricular systolic function. The estimated ejection fraction is 60-65%. There is septal flattening of the interventricular septum consistent with right ventricular volume or pressure overload. Abnormal left ventricular diastolic filling is observed, consistent with impaired relaxation. The left atrium is moderately dilated. The right ventricle is mildly dilated. The right ventricular global systolic function is low normal. The right atrium is moderately dilated. The aortic valve leaflets are mildly thickened. There is mild tricuspid regurgitation. There is mild dilatation of the ascending aorta. There is evidence of an atrial septal aneurysm. Similar to the GIRISH of 2011 except that a PFO was demonstrated on the GIRISH bubble study and atherosclerotic plaque was seenin the aorta. The RV dilatation and septal flattening were not reported in 2011. EKG Data: sb no acute st t change when compared to 2011 ekg Assess/Plan/Problems-Billing Assessment: This is a 72 yr old male with copd, bleeding gastric ulcer 2007/2008 but had to take asa 81 mg due to cva/tia attack presented to er with melena for one week but became weak/unsteady gait/fall pt was transferred to here from [place] due to lack of gi service - Patient Problems (1) UGIB (upper gastrointestinal bleed) Code(s): K92.2 - GASTROINTESTINAL HEMORRHAGE, UNSPECIFIED SNOMED Code(s): 14045145 Comment: - Hx of ulcer and ASA use, may have had additional medication added by his primary at some point, was on Pepcid but not PPI - s/p 3 units PRBCs for symptomatic anemia 2/2 acute GIB - Plan for EGD this afternoon - Continue protonix drip and NPO - Discussed with cardiology and GI regarding clearance, please see note below (2) Generalized weakness Code(s): R53.1 - WEAKNESS SNOMED Code(s): 10926181 Comment: - Likely in response to dropping H&H, however there is mild increase in troponin - No chest pain, but does get SOB - ECHO as above, EF is adquate (3) Anemia Code(s): D64.9 - ANEMIA, UNSPECIFIED SNOMED Code(s): 648293419 Comment: - In setting of GI bleeding and CO exposure - CO level <4.0 and patient has been on O2 since admission, stable - Continue O2 at @LNC - Follow H&H after last transfusio, goal HgB >8.0 (4) COPD (chronic obstructive pulmonary disease) Code(s): J44.9 - CHRONIC OBSTRUCTIVE PULMONARY DISEASE, UNSPECIFIED SNOMED Code(s): 09861679 Comment: - PRN duoneb, not in exacerbation - Some wheeze today, continue pulmonary toilet with IS (5) Demand ischemia Code(s): I24.8 - OTHER FORMS OF ACUTE ISCHEMIC HEART DISEASE SNOMED Code(s): 346291039 Comment: - Elevated trop on admission now trending down, unclear if demand versus ACS - ECHO as above, initial plan for lexiscan today, however, given profound anemia, cardiology prefers not to stress until H&H stable - If we do not stress during this hospitalization, will definitely need to schedule as outpatient - Currently no chest pain, no dyspnea, patient relates he can climb a flight of stairs without SOB and without chest pain (6) DVT prophylaxis Code(s): ABP2659 - SNOMED Code(s): 182482813 Comment: - Active bleeding, SCDs only (7) Full code status Code(s): Z78.9 - OTHER SPECIFIED HEALTH STATUS SNOMED Code(s): 733972880 Status and Disposition: Inpatient, critical: In terms of CV risk assessment for planned sedation for EGD: RCRI is calculated at 0.9% or Class II for intraoperative CV event. Patient is currently medically optimized for EGD today, based on labs and ECHO, as the benefit of the procedure outweighs the risk of anesthesia. Coordinated with cardiology and GI.
[2018-03-25] MEDS ORDERED: Artificial Tears* 15 ML BTL BOTH EYES PRN (14:03)
[2018-03-25 14:14] LABS: Hematocrit 23 % (42-52)
[2018-03-25] MEDS ORDERED: fentaNYL* 50 MCG/ML 2 ML VIAL (100 MCG VIAL) ONE (14:31)
[2018-03-25] MEDS ORDERED: Midazolam* 1 MG/ML 10 ML VIAL (10 MG) ONE (14:31)
--- NOTE | 2018-03-25 22:05 | PRO ---
CC: Dr. Renae Wynn; Sharda Cole, the patient's primary care team. PROCEDURE REPORT: DATE OF SERVICE: 03/25/18 PROCEDURE: EGD. INDICATIONS FOR PROCEDURE: Acute blood loss anemia. PROCEDURE PERFORMED: Complete esophagogastroduodenoscopy with biopsies. MEDICATIONS GIVEN: Include: 1. IV midazolam 11 mg. 2. IV fentanyl 100 mcg. DESCRIPTION OF PROCEDURE: After the EGD procedure including the risks, benefits , and alternatives with the risks not limited to perforation, surgery, missed lesions, and/or were explained to the patient, written informed consent was obtained and a bite block was placed between the teeth. The adult Olympus gastroscope was inserted into the patient's oropharynx, into the tubular esophagus. At the distal esophagus he had a nonoccluding Schatzki ring and LA-A erosive esophagitis. The scope was advanced through the lower esophageal sphincter into the stomach. There was mild henao gastritis. This was biopsied for CLOtesting. On retroflexion, a small 1 cm sliding hiatal hernia was visualized. The scope was passed through the widely patent pylorus into the duodenal bulb. In the duodenal bulb at the 3 o'clock position, entering the C loop on the top, extending over the roof of the bulb there was a 2 cm what appeared to be clean based ulcer, but it was very difficult to get a full view of the ulcer secondary to the location. After multiple attempts, I was able to not see any clear visible vessel or pigmentation and it appeared to be completely clean based at this time. There was no active or evidence of old blood in the area. I was able to pass through the C loop into the distal part of the duodenum which was normal in appearance. The remainder of the C loop was normal in appearance. The scope was then removed from the patient. The GE junction was at 40 cm. The patient tolerated the procedure well. He returned to the ICU in stable condition. IMPRESSION: 1. Complete esophagogastroduodenoscopy with biopsies. 2. Bulbar ulcer at the 3 o'clock position, 2 cm, clean base by appearance. 3. Gastritis. Biopsy for CLOtesting. 4. LA-A erosive esophagitis. 5. Nonoccluding Schatzki ring. RECOMMENDATIONS: Proton-pump inhibitor x3 months. I would recommend another 24 hours of IV PPI therapy because I was not able to get a fantastic visualization of the entire ulcer. I addition, I would like to do a repeat EGD in 3 months to see if his LA-A erosive esophagitis has healed and to establish if there is any underlying Pa's underneath the erosive esophagitis. Would place him on full liquids tonight. If he tolerates that well, he can be rapidly advanced to a regular diet on 03/26/18 and may be discharged on the evening of 03/26/18 if hemodynamics are stable and no evidence of re-bleeding. Again, I would like to have a repeat EGD in 3 months' time with myself. [id number]/[facility] #: [id number] MTDD
[2018-03-26 05:37] LABS: ABS Basophils 0 10^3/ul (0-0.2); ABS Eosinophils 0.2 10^3/ul (0-0.6); ABS Lymphocytes 1.3 10^3/ul (1.0-4.8); ABS Monocytes 0.7 10^3/ul (0-0.8); ABS Nucleated RBC 0 10^3/ul; Eosinophil % 2.9 %; Hematocrit 23 % (42-52); Lymphocyte % 15.9 %; Mean Corpuscular HGB Conc 35 g/dl (31-36); Mean Corpuscular Hemoglobin 33 pg (27-31); Mean Corpuscular Volume 94 fL (80-94); Mean Platelet Volume 8.8 fL (7.4-10.4); Nucleated Red Blood Cells % 0.3; Platelet Count 125 10^3/ul (150-450); Red Blood Count 2.42 10^6/ul (4.00-5.40); Red Cell Distribution Width 15 % (10.5-15); White Blood Count 8.3 10^3/ul (3.5-10.8)
[2018-03-26 05:58] LABS: Albumin 2.6 g/dL (3.2-5.2); Calcium 7.5 mg/dL (8.6-10.3); EGFR Non-African American 101.8 (>60); Globulin 1.3 g/dL (2-4); Potassium 3.5 mmol/L (3.5-5.0); Total Bilirubin 0.8 mg/dL (0.2-1.0); Total Protein 3.9 g/dL (6.4-8.9)
[2018-03-26] MEDS: Pantoprazole* 80 mg IN NS 80 MG/250 ML BAG IVPB SCH (08:33)
[2018-03-26] MEDS: NS 0.9% 1000 ML* 1,000 ML IV SCH (08:35)
[2018-03-26] MEDS ORDERED: CMCS Pantoprazole TAB (NF) 40 MG TAB PO SCH (10:00)
[2018-03-26 12:53] VITALS: BP 124/59
--- NOTE | 2018-03-27 02:38 | DS ---
CC: Dr. Helton; Dr. Clancy; Dr. Reynoso* DISCHARGE SUMMARY: DATE OF ADMISSION: 03/23/18 DATE OF DISCHARGE: 03/26/18 ATTENDING FOR THIS ADMISSION: Dr. Helton. He is also my attending for today. * (dictated by Santiago Cole NP). HOSPITAL COURSE: Please refer to admission H and P from Dr. Renae Wynn dated ; however, in short, this patient is a 72-year-old male who was transferred from [facility] for weakness, anemia, and upper GI bleed. The patient reported melena as well as general weakness when he presented to [facility]. [facility] did not have GI service that day, so he was subsequently transferred to [facility] for additional gastroenterologic care. After being admitted, the patient was worked up for his anemia. His Hemoccult was positive. He also had several bouts of large stools that were mixed melena and tree bleeding. Initially, his hemoglobin was stable at 10.5; however, within 24 hours, his hemoglobin went to 6.3 and hematocrit of 18. The patient's course was complicated by elevated troponins and also prior exposure to carbon monoxide. The patient said he was treated for the carbon monoxide exposure prior to going to [facility] for the GI bleeding; however, given the prior carbon monoxide exposure and elevated troponins, requested that the patient have cardiac clearance, so he could undergo anesthesia for his endoscopy. However, the patient was persistently hypotensive and weak, required 3 units of blood to be transfused. At that point , cardiac clearance was obtained via echocardiogram and patient history rather than putting the patient through a stress test; at that point, the patient was too weak to be stressed. The patient did undergo endoscopy with Dr. Clancy while he was in the ICU. The procedure was performed on 03/25/18, that report from GI reveals that the patient had some erosive esophagitis; nonoccluding Schatzki ring; mild pangastritis; a bulbar ulcer at the 3 o'clock position approximately 2 cm in size, clean base by appearance; also showed general gastritis. Biopsies were obtained for KHUSHI testing. The patient was on a proton pump inhibitor drip and was also recommended for discharge to be on proton pump inhibitor for 3 months. The patient was evaluated for physical gait. The patient did not require physical therapy to evaluate and he was able to ambulate with the nursing staff. He was advanced on his diet from n.p.o. to clears to full liquids and today was able to tolerate soft diet without abdominal pain and no evidence of bleeding. The patient was readied for discharge on 03/26/18. DISCHARGE DIAGNOSES: 1. Gastric ulcer with bleeding. 2. Symptomatic anemia secondary to gastric ulcer with bleeding. 3. Elevated troponins, likely attributed to demand ischemia. 4. Right atrial dilatation and evidence of an atrial septal aneurysm. DISCHARGE MEDICATIONS: Medications for discharge include: Protonix 40 mg p.o. b.i.d. Home medications include: 1. Atorvastatin 80 mg p.o. daily. 2. Dicyclomine 10 mg p.o. t.i.d. as needed. 3. Xyzal 5 mg p.o. daily. REVIEW OF SYSTEMS: On the day of discharge, the patient denies any fever, fatigue, or chills. No abdominal pain, no nausea, no vomiting, no chest pains, no shortness of breath, no urinary complaints, no bowel complaints, and no further constitutional complaints. PHYSICAL EXAMINATION: Physical exam reveals a well-appearing elderly male, in no acute distress. Vital signs are blood pressure 124/59, heart rate 55, respiratory rate 20, O2 saturation 95% on room air with temperature 97.5. HEENT : The patient is atraumatic, normocephalic. PERRLA, with anicteric sclerae. Oral mucosa is moist. Tongue is midline. Neck is supple, nontender. No JVD noted. No carotid bruits auscultated. Cardiovascular: S1 and S2 present. Rate is bradycardic. Rhythm is regular. No murmurs, gallops, or rubs noted. Lungs are clear bilaterally to auscultation, mildly diminished at the bases. No wheezing, rhonchi, or rales noted. Abdomen is soft, nontender, nondistended. Positive bowel sounds in all 4 quadrants. is deferred. Musculoskeletal: There is no clubbing, no cyanosis, and no edema. The patient has +2 distal pulses palpable, full range of motion intact. Gross motor and sensation are intact. Neurologic: Grossly intact. No focal deficits. Psychiatric: Cooperative and appropriate. DIAGNOSTIC STUDIES/LAB DATA: WBCs 8.3, RBCs 2.42, hemoglobin 8.0, hematocrit 23 , platelets 125. Sodium 138, potassium 3.5, chloride 112, CO2 of 24, BUN 18, creatinine 0.75. Protein 3.9, albumin 2.6, globulin 1.3. Troponins were 0.11, 0.07, 0.04, and 0.03. TSH 2.61. Cholesterol 84, LDL 27, HDL 29, triglycerides 140. Imaging: Brain CT showed no acute findings. CTA of the chest showed no PE. Echocardiogram dated 03/23/18: Echocardiogram shows normal left ventricular systolic function. EF of 60% to 65%, septal flattening of the interventricular septum consistent with right ventricular volume pressure overload, abnormal left ventricular diastolic filling is observed with impaired relaxation, left atrium is moderately dilated, right ventricle is mildly dilated, right ventricular global systolic function is normal. Right atrium is moderately dilated. Aortic valve leaflets are mildly thickened, mild tricuspid regurgitation, there is mild dilatation of the ascending aorta. There is evidence of an atrial septal aneurysm similar to GIRISH 2011 except that a PFO was demonstrated on the GIRISH bubble study and atherosclerotic plaque was seen in the aorta. The right ventricular dilatation and septal flattening were not reported in 2011 and are new findings. DISPOSITION: The patient will be discharged to home. He is in stable condition. FOLLOWUP: The patient was instructed to follow up with Dr. Clancy from whose office will call the patient for a followup appointment. He will be referred to the [facility] who will also call the patient for an appointment. The patient was also instructed to follow up with [facility], as we were not able to perform the stress test on the patient during this admission. It was recommended by Cardiology that the patient should have a stress test as an outpatient to continue to ensure the patient's cardiac status is not changed based on this last admission. The patient was discharged in stable condition. All questions were answered. The patient stated understanding of his medications and followups at the time of discharge. TIME SPENT: 35 minutes interacting with the patient, planning discharge plan of care, and coordinating with other providers. SANTIAGO COLE NP [id number]/[facility] #: [id number] [facility]ALTyson
== END 2018-03-26 16:10 | disposition home or self-care (01) | DRG 381 ==
LOC: ED 20:25 → MED 03-23 00:09 → ICU 03-24 13:11 → MEDTELE 03-25 17:25
PROVIDERS: ADMIT Internal Medicine; ATTEND Student in an Organized Health Care Education/Training Program
PROC: 0DB68ZX Excision of Stomach, Via Natural or Artificial Opening Endoscopic, Diagnostic (ICD-10-PCS; principal; 2018-03-25)
PROC: 30233N1 Transfusion of Nonautologous Red Blood Cells into Peripheral Vein, Percutaneous Approach (ICD-10-PCS; 2018-03-25)
DX: K22.11 Ulcer of esophagus with bleeding (principal); I24.8 Other forms of acute ischemic heart disease; D62 Acute posthemorrhagic anemia; Q21.1 Atrial septal defect; K25.4 Chronic or unspecified gastric ulcer with hemorrhage; I95.9 Hypotension, unspecified; K22.2 Esophageal obstruction; D64.9 Anemia, unspecified; K29.70 Gastritis, unspecified, without bleeding; K44.9 Diaphragmatic hernia without obstruction or gangrene; J44.9 Chronic obstructive pulmonary disease, unspecified; I10 Essential (primary) hypertension; K21.9 Gastro-esophageal reflux disease without esophagitis; M19.90 Unspecified osteoarthritis, unspecified site; I77.819 Aortic ectasia, unspecified site; R53.1 Weakness; I07.1 Rheumatic tricuspid insufficiency; Z90.89 Acquired absence of other organs; Z87.891 Personal history of nicotine dependence; Z86.73 Personal history of transient ischemic attack (TIA), and cerebral infarction without residual deficits; Z82.49 Family history of ischemic heart disease and other diseases of the circulatory system
CPT/HCPCS: 36415; 70450; 71275; 78451; 80048; 80053; 80061; 81003; 82375; 83540; 83550; 83735; 84443; 84484; 85014; 85018; 85025; 85027; 85610; 85730; 86850; 86900; 86901; 86922; 87077; 87641; 93005; 93306; 94640; 99156; 99157; 99284; A9270-GY; A9502; C8929; J2250; J3010; J3475; P9016; P9040; Q9967